=== PATIENT | male | born 1990 | race Caucasian/White ===

== ENCOUNTER 2018-01-21 00:10 | Emergency (ER) | payer BC ==
--- NOTE | 2018-01-21 01:19 | ER Document Report ---
ED General - General Chief Complaint: Chest Pain Stated Complaint: CHEST PAIN Time Seen by Provider: 01/21/18 01:18 Notes: Patient is a 27-year-old male who presents with complaint of chest pain is come up for sleep. He says that the lower chest region and radiates to his back. He said he has had a few episodes over the course of the year. He said these previous episodes came on quickly at night and then went away on their own. This episode lingered on. He said currently the pain is almost gone now. He denies any difficulty breathing. No shortness of breath. Pain is not pleuritic. He says he does have some acid reflux and he suspects that that is what is causing his pain however he does have a family history of coronary disease at a young age. Therefore is come to the ER. No recent leg pain or leg swelling. No recent long road trips. No recent surgeries. No history of DVT or PE. He does not smoke. Does not take any medications. He is otherwise healthy. TRAVEL OUTSIDE OF THE [place] IN LAST 30 DAYS: No - Related Data Allergies/Adverse Reactions: No Known Allergies Allergy (Unverified 01/21/18 00:15) Past Medical History - Social History Smoking Status: Unknown if Ever Smoked Frequency of alcohol use: None Drug Abuse: None Family History: Reviewed & Not Pertinent Patient has suicidal ideation: No Patient has homicidal ideation: No Renal/ Medical History: Denies: Hx Peritoneal Dialysis Review of Systems - Review of Systems Notes: My Normal Review Basic REVIEW OF SYSTEMS: CONSTITUTIONAL : Denies fever, chills, or sweats. Denies recent illness. EENT: Denies eye, ear, throat, or mouth pain or symptoms. Denies nasal or sinus congestion. CARDIOVASCULAR: Chest pain RESPIRATORY: Denies cough, cold, or chest congestion. Denies shortness of breath, difficulty breathing, or wheezing. GASTROINTESTINAL: Denies abdominal pain. Denies nausea, vomiting, or diarrhea. MUSCULOSKELETAL: Pain radiating to back from chest. SKIN: Denies rash or skin lesions. NEUROLOGICAL: Denies altered mental status or loss of consciousness. Denies headache. Denies weakness or paralysis or loss of use of either side. Denies problems with gait or speech. Denies sensory or motor loss. ALL OTHER SYSTEMS REVIEWED AND NEGATIVE. Physical Exam - Vital signs Vitals: Temp Pulse Resp BP Pulse Ox 97.9 F 78 16 156/95 H 100 01/21/18 00:34 01/21/18 00:34 01/21/18 00:34 01/21/18 00:34 01/21/18 00:34 - Notes Notes: General Appearance: Well nourished, alert, cooperative, no acute distress, no obvious discomfort. Well-appearing. Vitals: reviewed, See vital signs table. Head: no swelling or tenderness to the head Eyes: PERRL, EOMI, Conjuctiva clear Mouth: No decreasd moisture Throat: No tonsillar inflammation, No airway obstruction, No lymphadenopathy Lungs: No wheezing, No rales, No rhonci, No accessory muscle use, good air exchange bilaterally. Heart: Normal rate, Regular rythm, No murmur, no rub Abdomen: Normal BS, soft, No rigidity, No abdominal tenderness, No guarding, no rebound, no abdominal masses, no organomegaly Extremities: strength 5/5 in all extremities, good pulses in all extremities, no swelling or tenderness in the extremities, no edema. Skin: warm, dry, appropriate color, no rash Neuro: speech clear, oriented x 3, normal affect, responds appropriately to questions. Course - Re-evaluation Re-evalutation: 01/21/18 02:23 Patient looks very well and is chest pain-free at this time. His pain is always in the lower chest and radiates to the back. Said it a few times over the course of last year. This is always happens at night and wakes him up. Sounds very similar to that of acid reflux. Patient himself admits that he felt it is probably related to acid reflux or gastritis. I will have him take either Pepcid or Zantac every day. I did obtain cardiac enzymes and EKG only because he has such a strong family history of heart disease at a young age. He otherwise has no other risk factors. He does not smoke, he was hypertensive when he first came in but has no other history of hypertension. No history of high cholesterol. Is otherwise healthy. His heart score is 2 due to family history and story. I informed him that we will have him follow-up with the sandwich and drink cart operator for reevaluation. I informed him he should still have a low threshold to return to ER immediately if he has recurrent chest pain, difficulty breathing, or feels unwell. Patient agrees with plan will be discharged home. His blood pressure was elevated when he first came in. Is now 139/87 without any intervention. Informed the patient just to keep a log of his blood pressures over the next 1-2 weeks. Informed to talk to primary care doctor about his blood pressures if they are recurrently elevated on his log. I suspect the most likely his blood pressure is elevated because he was anxious and having pain when he first arrived to the ER. Dictation of this chart was performed using voice recognition software; therefore, there may be some unintended grammatical errors. 01/21/18 02:28 - Vital Signs Vital signs: Temp Pulse Resp BP Pulse Ox 97.9 F 78 15 145/97 H 98 01/21/18 00:34 01/21/18 00:34 01/21/18 01:35 01/21/18 01:35 01/21/18 01:35 - Laboratory Result Diagrams: 01/21/18 01:28 01/21/18 01:28 Laboratory results interpreted by me: 01/21/18 01/21/18 01:28 01:28 Plt Count 141 L Glucose 113 H - EKG Interpretation by Me Additional EKG results interpreted by me: 01/21/18 01:18 EKG is reviewed and interpreted by me. EKG shows normal sinus rhythm with a rate of [address] segment elevation or depression. No ischemic T-wave inversions. [place] interval, QRS duration, QTc intervals are within normal range. No old EKG available for comparison. Discharge - Discharge Clinical Impression: Chest pain Qualifiers: Chest pain type: unspecified Qualified Code(s): R07.9 - Chest pain, unspecified Condition: Good Disposition: HOME, SELF-CARE Additional Instructions: Your EKG and blood work looking at your heart came back normal tonight. I suspect most likely the pain you've been having is related to gastritis or acid reflux being that the pain always happens at night. Please take Pepcid or Zantac once a day every day. You do have a strong family history of heart disease. Because of this we still want she will follow up with sandwich and drink cart operator for further evaluation. Please call Dr. Walker's office to make a close follow- up appointment. Please return to ER immediately if you have recurrent chest pain, difficulty breathing, or feel unwell in any way. Referrals: KAREN WALKER MD [ACTIVE STAFF] - Follow up in 3-5 days (call office in the am to make a close follow up appointment.)
[2018-01-21 01:54] LABS: ALANINE AMINOTRANSFERASE 51 U/L (21-72); ALBUMIN 4.4 g/dL (3.5-5.0); ALKALINE PHOSPHATASE 65 U/L (38-126); ANION GAP 16 (5-19); ASPARTATE AMINO TRANSFERASE 59 U/L (17-59); BILIRUBIN,DIRECT 0.3 mg/dL (0.0-0.4); BILIRUBIN,TOTAL 0.9 mg/dL (0.2-1.3); BLOOD UREA NITROGEN 14 mg/dL (7-20); CALCIUM 9.5 mg/dL (8.4-10.2); CARBON DIOXIDE 25 mmol/L (22-30); CHLORIDE 104 mmol/L (98-107); GLUCOSE 113 mg/dL (75-110); POTASSIUM 3.9 mmol/L (3.6-5.0); SODIUM 144.5 mmol/L (137-145); TOTAL PROTEIN 7.1 g/dL (6.3-8.2)
[2018-01-21 01:55] LABS: ABSOLUTE EOSINOPHILS # (AUTO) 0.1 10^3/uL (0.0-0.6); ABSOLUTE LYMPHOCYTES (AUTO) 1.7 10^3/uL (0.5-4.7); ABSOLUTE MONOCYTES (AUTO) 0.5 10^3/uL (0.1-1.4); ABSOLUTE NEUT (AUTO) 4.6 10^3/uL (1.7-8.2); BASOPHILS % (AUTO) 0.3 % (0-2); EOSINOPHILS % (AUTO) 2.1 % (0-6); HEMATOCRIT 44.6 % (37.9-51.0); HEMOGLOBIN 15.3 g/dL (13.5-17.0); LYMPHOCYTES % (AUTO) 24.5 % (13-45); MEAN CORPUSCULAR HEMOGLOBIN 29.9 pg (27.0-33.4); MEAN CORPUSCULAR HGB CONC 34.2 g/dL (32.0-36.0); MEAN CORPUSCULAR VOLUME 88 fl (80-97); MONOCYTES % (AUTO) 7.8 % (3-13); PLATELET COUNT 141 10^3/uL (150-450); RED BLOOD COUNT 5.09 10^6/uL (4.35-5.55); RED CELL DISTRIBUTION WIDTH 13.5 % (11.5-14.0); SEGMENTED NEUTROPHILS % (AUTO) 65.3 % (42-78); TOTAL CELLS COUNTED % (AUTO) 100 %
[2018-01-21 02:30] VITALS: BP 139/87
--- NOTE | 2018-01-21 02:30 | RADIOLOGY REPORT (SQ) ---
EXAM DESCRIPTION: CR Chest two view CLINICAL HISTORY: 27 years Male, chest pain COMPARISON: None. NUMBER OF VIEWS/TECHNIQUE: 2, PA and Lateral LIMITATIONS: None. FINDINGS: Normal lung volume. Clear parenchyma. Normal cardiac silhouette. Intact bony thorax. IMPRESSION: No acute cardiopulmonary findings.
--- NOTE | 2018-01-21 07:34 | EKG REPORT ---
SEVERITY:- NORMAL ECG - SINUS RHYTHM : Confirmed by: Felipe Borja MD 21-Jan-2018 07:34:14
== END 2018-01-21 02:36 | disposition home or self-care (01) ==
LOC: ER 00:10
DX: R07.9 Chest pain, unspecified (principal)
CPT/HCPCS: 36415; 71046; 80053; 84484; 85025; 93005; 93010; 99285

== ENCOUNTER 2019-06-07 12:34 | Inpatient (IN) | payer BC, OTHER ==
--- NOTE | 2019-06-07 13:07 | ER Document Report ---
ED Medical Screen (RME) - General Chief Complaint: Abdominal Pain Stated Complaint: ABDOMINAL PAIN Time Seen by Provider: 06/07/19 13:03 Mode of Arrival: Ambulatory Information source: Patient Notes: Patient presents to the emergency department with complaints of right upper quad epigastric pain since Thursday. Reports he has been vomiting. He went to [facility] and they sent him here. He denies fever diarrhea. Past medical history I have greeted and performed a rapid initial assessment of this patient. A comprehensive ED assessment and evaluation of the patient, analysis of test results and completion of the medical decision making process will be conducted by additional ED providers. Dictation of this chart was performed using voice recognition software; therefore, there may be some unintended grammatical errors. TRAVEL OUTSIDE OF THE [place] IN LAST 30 DAYS: No - Related Data Allergies/Adverse Reactions: No Known Allergies Allergy (Verified 06/07/19 13:01) Past Medical History - Social History Chew tobacco use (# tins/day): No Frequency of alcohol use: None Renal/ Medical History: Denies: Hx Peritoneal Dialysis GI Medical History: Reports: Hx Gastroesophageal Reflux Disease Physical Exam - Vital signs Vitals: Temp Pulse Resp BP Pulse Ox 98.1 F 82 16 140/86 H 99 06/07/19 12:52 06/07/19 12:52 06/07/19 12:52 06/07/19 12:52 06/07/19 12:52 Course - Vital Signs Vital signs: Temp Pulse Resp BP Pulse Ox 98.1 F 82 16 140/86 H 99 06/07/19 12:52 06/07/19 12:52 06/07/19 12:52 06/07/19 12:52 06/07/19 12:52
[2019-06-07 13:41] LABS: ABSOLUTE EOSINOPHILS # (AUTO) 0.1 10^3/uL (0.0-0.6); ABSOLUTE LYMPHOCYTES (AUTO) 1.1 10^3/uL (0.5-4.7); ABSOLUTE MONOCYTES (AUTO) 0.7 10^3/uL (0.1-1.4); ABSOLUTE NEUT (AUTO) 5.6 10^3/uL (1.7-8.2); BASOPHILS % (AUTO) 0.5 % (0-2); EOSINOPHILS % (AUTO) 1.6 % (0-6); HEMATOCRIT 47.4 % (37.9-51.0); HEMOGLOBIN 16.1 g/dL (13.5-17.0); LYMPHOCYTES % (AUTO) 14.4 % (13-45); MEAN CORPUSCULAR HEMOGLOBIN 29.6 pg (27.0-33.4); MEAN CORPUSCULAR VOLUME 87 fl (80-97); MONOCYTES % (AUTO) 9.2 % (3-13); PLATELET COUNT 156 10^3/uL (150-450); RED BLOOD COUNT 5.44 10^6/uL (4.35-5.55); RED CELL DISTRIBUTION WIDTH 13.5 % (11.5-14.0); SEGMENTED NEUTROPHILS % (AUTO) 74.3 % (42-78); TOTAL CELLS COUNTED % (AUTO) 100 %; WHITE BLOOD COUNT 7.5 10^3/uL (4.0-10.5)
[2019-06-07 13:46] LABS: APPEARANCE,URINE CLEAR; BILIRUBIN,URINE MODERATE (NEGATIVE); COLOR,URINE AMBER; GLUCOSE, URINE NEGATIVE (NEGATIVE); KETONES,URINE 20 mg/dL (NEGATIVE); LEUKOCYTE ESTERASE,URINE NEGATIVE (NEGATIVE); NITRITE,URINE NEGATIVE (NEGATIVE); PROTEIN,URINE NEGATIVE (NEGATIVE); URINE SPECIFIC GRAVITY 1.016
[2019-06-07 14:15] LABS: ALBUMIN 4.9 g/dL (3.5-5.0); ALKALINE PHOSPHATASE 142 U/L (38-126); ANION GAP 13 (5-19); ASPARTATE AMINO TRANSFERASE 123 U/L (17-59); BILIRUBIN,DIRECT 5.2 mg/dL (0.0-0.4); BILIRUBIN,TOTAL 8.7 mg/dL (0.2-1.3); BLOOD UREA NITROGEN 9 mg/dL (7-20); CARBON DIOXIDE 28 mmol/L (22-30); CHLORIDE 99 mmol/L (98-107); GLUCOSE 92 mg/dL (75-110); POTASSIUM 3.7 mmol/L (3.6-5.0); TOTAL PROTEIN 8.3 g/dL (6.3-8.2)
[2019-06-07] MEDS ORDERED: NORMAL SALINE 1000 ML 1,000 ML IV ONE (17:05)
--- NOTE | 2019-06-07 17:07 | ER Document Report ---
ED GI/ - General Chief Complaint: Abdominal Pain Stated Complaint: ABDOMINAL PAIN Time Seen by Provider: 06/07/19 13:03 Mode of Arrival: Ambulatory Information source: Patient Notes: Patient presents with a 5-day history of right upper quadrant abdominal pain. Patient states that he had a similar episode of pain 2 weeks ago that lasted for several days and then got better. Patient states that he noticed that his urine turned orange and his eyes are yellow since yesterday. Patient does report vomiting x1 episode today. Patient complains of decreased appetite. TRAVEL OUTSIDE OF THE [place] IN LAST 30 DAYS: No - HPI Patient complains to provider of: Abdominal pain. No: Vomiting Onset: Other - 5 days Timing/Duration: Persistent Quality of pain: Achy Pain Level: 3 Location: RUQ Associated symptoms: Loss of appetite, Nausea, Vomiting. denies: Chest pain, Dysuria, Fever, Urinary hesitancy, Urinary retention, Urinary urgency Exacerbated by: Denies Relieved by: Denies Similar symptoms previously: No Recently seen / treated by doctor: No - Related Data Allergies/Adverse Reactions: No Known Allergies Allergy (Verified 06/07/19 13:01) Past Medical History - General Information source: Patient - Social History Smoking Status: Never Smoker Chew tobacco use (# tins/day): No Frequency of alcohol use: None Drug Abuse: None Occupation: Retail Lives with: Family Family History: Reviewed & Not Pertinent Patient has suicidal ideation: No Patient has homicidal ideation: No Renal/ Medical History: Denies: Hx Peritoneal Dialysis GI Medical History: Reports: Hx Gastroesophageal Reflux Disease Past Surgical History: Reports: Hx Oral Surgery Review of Systems - Review of Systems Constitutional: No symptoms reported. denies: Fever EENT: Other - Eyes have turned yellow Cardiovascular: No symptoms reported. denies: Chest pain Respiratory: No symptoms reported. denies: Cough, Short of breath Gastrointestinal: Abdominal pain, Nausea, Vomiting. denies: Diarrhea Genitourinary: Other - Urine is orange in color Male Genitourinary: No symptoms reported Musculoskeletal: No symptoms reported. denies: Back pain Skin: No symptoms reported Hematologic/Lymphatic: No symptoms reported Neurological/Psychological: No symptoms reported Physical Exam - Vital signs Vitals: Temp Pulse Resp BP Pulse Ox 98.1 F 82 16 140/86 H 99 06/07/19 12:52 06/07/19 12:52 06/07/19 12:52 06/07/19 12:52 06/07/19 12:52 - General General appearance: Appears well, Alert In distress: None - HEENT Head: Normocephalic Eyes: Normal Conjunctiva: Icteric Mouth/Lips: Normal Pharynx: Normal Neck: Normal, Supple. No: Lymphadenopathy - Respiratory Respiratory status: No respiratory distress Chest status: Nontender Breath sounds: Normal Chest palpation: Normal - Cardiovascular Rhythm: Regular Heart sounds: S1 appreciated, S2 appreciated Murmur: No - Abdominal Inspection: Normal Distension: No distension Bowel sounds: Normal Tenderness: Tender - RUQ. No: Guarding Organomegaly: No organomegaly - Back Back: Normal, Nontender. No: CVA tenderness - Extremities General upper extremity: Normal inspection, Normal ROM General lower extremity: Normal inspection, Normal ROM - Neurological Neuro grossly intact: Yes Cognition: Normal Bryant Coma Scale Eye Opening: Spontaneous [place] Coma Scale Verbal: Oriented [place] Coma Scale Motor: Obeys Commands [place] Coma Scale Total: 15 - Psychological Associated symptoms: Normal affect, Normal mood - Skin Skin Temperature: Warm Skin Moisture: Dry Skin Color: Jaundiced - mild Course - Re-evaluation Re-evalutation: 06/07/19 17:[address] Salmeron who agrees to evaluate patient 06/07/19 18:[address] Salmeron who recommends adding on CT scan with IV contrast at this time. 06/07/19 19:35 Dr. Salmeron states that he called a cook fishing vessel who is agreeable to pe rforming ERCP tomorrow. Dr. Salmeron states that he will admit patient here tonight and order his antibiotics at this time. - Vital Signs Vital signs: Temp Pulse Resp BP Pulse Ox 98.2 F 82 20 135/71 H 98 06/07/19 23:47 06/07/19 23:47 06/07/19 23:47 06/07/19 23:47 06/07/19 23:47 - Laboratory Result Diagrams: 06/07/19 13:19 06/07/19 13:19 Laboratory results interpreted by me: 06/07/19 06/07/19 13:19 13:19 Total Bilirubin 8.7 H Direct Bilirubin 5.2 H AST 123 H Alkaline Phosphatase 142 H Total Protein 8.3 H Urine Ketones 20 H Urine Bilirubin MODERATE H Urine Urobilinogen 4.0 H 06/07/19 19:36 Labs- Entire Visit 06/07/19 06/07/19 06/07/19 13:19 13:19 13:19 WBC 7.5 RBC 5.44 Hgb 16.1 Hct 47.4 MCV 87 MCH 29.6 MCHC 34.0 RDW 13.5 Plt Count 156 Lymph % (Auto) 14.4 [place] % (Auto) 9.2 Eos % (Auto) 1.6 Baso % (Auto) 0.5 Absolute Neuts (auto) 5.6 Absolute Lymphs (auto) 1.1 Absolute Monos (auto) 0.7 Absolute Eos (auto) 0.1 Absolute Basos (auto) 0.0 Seg Neutrophils % 74.3 Sodium 140.3 Potassium 3.7 Chloride 99 Carbon Dioxide 28 Anion Gap 13 BUN 9 Creatinine 1.02 Est GFR ( Amer) > 60 Est GFR (MDRD) Non-Af > 60 Glucose 92 Calcium 10.0 Total Bilirubin 8.7 H Direct Bilirubin 5.2 H Neonat Total Bilirubin Not Reportable Neonat Direct Bilirubin Not Reportable Neonat Indirect Bili Not Reportable AST 123 H ALT 238 Alkaline Phosphatase 142 H Total Protein 8.3 H Albumin 4.9 Lipase 77.9 Urine Color SAMUEL Urine Appearance CLEAR Urine pH 6.0 Ur Specific [place] 1.016 Urine Protein NEGATIVE Urine Glucose (UA) NEGATIVE Urine Ketones 20 H Urine Blood NEGATIVE Urine Nitrite NEGATIVE Urine Bilirubin MODERATE H Urine Urobilinogen 4.0 H Ur Leukocyte Esterase NEGATIVE Urine WBC (Auto) 5 Urine RBC (Auto) 4 Urine Mucus (Auto) FEW Urine Ascorbic Acid NEGATIVE - Diagnostic Test Radiology reviewed: Reports reviewed Discharge - Discharge Clinical Impression: Biliary obstruction, Jaundice Abdominal pain Qualifiers: Abdominal location: right upper quadrant Qualified Code(s): R10.11 - Right upper quadrant pain Condition: Fair Disposition: ADMITTED INPATIENT Admitting Provider: Surgicalist Unit Admitted: Medical Floor
--- NOTE | 2019-06-07 17:38 | RADIOLOGY REPORT (SQ) ---
EXAM DESCRIPTION: U/S ABDOMEN COMPLETE W/O DOP COMPLETED DATE/TIME: 06/07/2019 5:29 pm REASON FOR STUDY: ruq epigastric, flank pain, add bladder COMPARISON: None. TECHNIQUE: Dynamic and static grayscale images acquired of the abdomen and recorded on PACS. Additio nal selected color Doppler and spectral images recorded. Note: Study does not meet criteria for complete doppler/duplex scan LIMITATIONS: None. FINDINGS: PANCREAS: No masses. Visualized pancreatic duct normal caliber. LIVER: Heterogeneous appearance with possible infiltration. No large masses. LIVER VASCULATURE: Normal directional flow of the main portal vein and hepatic veins. GALLBLADDER: Stones. No pericholecystic fluid. ULTRASOUND-DETECTED VIRK'S SIGN: Negative. INTRAHEPATIC DUCTS AND COMMON DUCT: CBD and intrahepatic ducts normal caliber. No filling defects. INFERIOR VENA CAVA: Normal flow. AORTA: No aneurysm. RIGHT KIDNEY: Normal size. Normal echogenicity. No solid or suspicious masses. No hydronephros is. No calcifications. LEFT KIDNEY: Normal size. Normal echogenicity. No solid or suspicious masses. No hydronephrosi s. No calcifications. SPLEEN: Normal size. No solid masses. PERITONEAL AND PLEURAL SPACES: No ascites or effusions. OTHER: No other significant finding. IMPRESSION: Cholelithiasis. Heterogeneous appearance of the liver which is worrisome for an infiltrative process. COMMENT: Recommend CT scan of the liver with contrast. TECHNICAL DOCUMENTATION: JOB ID: [id number] [employer]- All Rights Reserved Reading location - IP/workstation name: [email or web address]
--- NOTE | 2019-06-07 19:07 | RADIOLOGY REPORT (SQ) ---
EXAM DESCRIPTION: CT ABD/PELVIS WITH IV ONLY COMPLETED DATE/TIME: 06/07/2019 6:50 pm REASON FOR STUDY: RUQ, jaundiced COMPARISON: None. TECHNIQUE: CT scan of the abdomen and pelvis performed using helical scanning technique with dynamic intravenous contrast injection. No oral contrast. Images reviewed with lung, soft tissue, and bone windows. Reconstructed coronal and sagittal MPR images reviewed. Delayed images for evaluation of the urinary system also acquired. All images stored on PACS. All CT scanners at this facility use dose modulation, iterative reconstruction, and/or weight based d osing when appropriate to reduce radiation dose to as low as reasonably achievable (ALARA). [facility]: Dose Right [facility]: CareDose [facility]: Dose Right [facility]: Teradose 4D [facility]: Zendrive CONTRAST TYPE AND DOSE: contrast/concentration: Isovue 350.00 mg/ml; Total Contrast Delivered: 95.0 ml; Total Saline Delivered: 71.0 ml RENAL FUNCTION: BUN 9 creatinine 1.0. RADIATION DOSE: CT Rad equipment meets quality standard of care and radiation dose reduction techniq ues were employed. CTDIvol: 9.2 - 12.8 mGy. DLP: 1254 mGy-cm.. LIMITATIONS: None. FINDINGS: LOWER CHEST: No significant findings. No nodules or infiltrates. LIVER: Normal size. No masses. Dilated intrahepatic ducts. SPLEEN: Normal size. No focal lesions. PANCREAS: No masses. No significant calcifications. No adjacent inflammation or peripancreatic fluid collections. Pancreatic duct not dilated. GALLBLADDER: Gallstones. Dilated common bile duct, measuring 1.2 cm. Calcification in the distal co mmon bile duct, overall length on coronal imaging just over 2 cm. ADRENAL GLANDS: No significant masses or asymmetry. RIGHT KIDNEY AND URETER: No solid masses. No significant calcifications. No hydronephrosis or hyd roureter. LEFT KIDNEY AND URETER: No solid masses. No significant calcifications. No hydronephrosis or hydr oureter. AORTA AND VESSELS: No aneurysm. No dissection. Renal arteries, SMA, celiac without stenosis. RETROPERITONEUM: No retroperitoneal adenopathy, hemorrhage or masses. BOWEL AND PERITONEAL CAVITY: No masses or inflammatory changes. No free fluid or peritoneal masses. APPENDIX: Normal. PELVIS: No mass. No free fluid. Normal bladder. ABDOMINAL WALL: No masses. No hernias. BONES: No significant or acute findings. OTHER: No other significant finding. IMPRESSION: 1. GALLSTONES. LARGE CALCIFICATION IN THE DISTAL COMMON BILE DUCT, MEASURING OVER 2 CM IN LENGTH, RE SULTING IN BILIARY OBSTRUCTION. THIS MAY REPRESENT A SINGLE LARGE STONE OR NUMEROUS STONES CLOSELY P ACKED TOGETHER. 2. NO OTHER SIGNIFICANT OR ACUTE FINDING IN THE ABDOMEN OR PELVIS ON CT SCAN WITH IV CONTRAST. TECHNICAL DOCUMENTATION: JOB ID: [id number] Quality ID # [id number]: Final reports with documentation of one or more dose reduction techniques (e.g., Au tomated exposure control, adjustment of the mA and/or kV according to patient size, use of iterative reconstruction technique) 2010 [employer]- All Rights Reserved Reading location - IP/workstation name: [email or web address]
--- NOTE | 2019-06-07 19:43 | PDOC H&P ---
History of Present Illness Admission Date/PCP: 06/07/19 Patient complains of: RUQ pains History of Present Illness: PIETER DONALD is a 29 year old malewho started c/o RUQ pains 5 days ago. This was associated with nausea and vomiting. He also noticed that his urine was highly colored. The pains were persistent and went to ED today. He had an ultrasound of the gallbladder which showed gallstones with a normal common bile duct but with question of inflammatory lesion in the liver. His LFTs are elevated as well as bilirubin being 8. A CT scan of the abdomen was then ordered and showed dilated intrahepatic bile ducts with the common bile duct stone about 2 cm in diameter. He was able to get in touch with Dr. Reid the GI physician. He said the patient can be admitted to the surgical service and started on IV antibiotics and he will do an ERCP tomorrow. The patient will eventually need cholecystectomy after the ERCP. Denies any chills nor fever diarrhea or constipation. Past Medical History GI Medical History: Reports: Gastroesophageal Reflux Disease Social History Smoking Status: Never Smoker Family History Family History: Reviewed & Not Pertinent Parental Family History Reviewed: Yes - Father of IA at age 42 Children Family History Reviewed: No Sibling(s) Family History Reviewed.: No Medication/Allergy Allergies/Adverse Reactions: No Known Allergies Allergy (Verified 06/07/19 13:01) Review of Systems Constitutional: PRESENT: as per HPI Gastrointestinal: PRESENT: abdominal pain - RUQ radiating to the back and LUQ, heartburn, nausea, vomiting Physical Exam Vital Signs: Temp Pulse Resp BP Pulse Ox 98.1 F 82 16 140/86 H 99 06/07/19 12:52 06/07/19 12:52 06/07/19 12:52 06/07/19 12:52 06/07/19 12:52 Intake & Output 06/06/19 06/07/19 06/08/19 06:59 06:59 06:59 Weight 82.8 kg General appearance: PRESENT: mild distress Eye exam: PRESENT: scleral icterus Neck exam: PRESENT: full ROM Cardiovascular exam: PRESENT: RRR Pulses: PRESENT: normal radial pulses Vascular exam: PRESENT: normal capillary refill GI/Abdominal exam: PRESENT: soft, tenderness - RUQ Extremities exam: PRESENT: full ROM Musculoskeletal exam: PRESENT: ambulatory Neurological exam: PRESENT: alert, oriented to person, oriented to place, oriented to time, oriented to situation Psychiatric exam: PRESENT: appropriate affect Skin exam: PRESENT: jaundice, warm Results Laboratory Results: 06/07/19 13:19 06/07/19 13:19 06/07/19 06/07/19 06/07/19 13:19 13:19 13:19 WBC 7.5 RBC 5.44 Hgb 16.1 Hct 47.4 MCV 87 MCH 29.6 MCHC 34.0 RDW 13.5 Plt Count 156 Seg Neutrophils % 74.3 Sodium 140.3 Potassium 3.7 Chloride 99 Carbon Dioxide 28 Anion Gap 13 BUN 9 Creatinine 1.02 Est GFR ( Amer) > 60 Glucose 92 Calcium 10.0 Total Bilirubin 8.7 H AST 123 H Alkaline Phosphatase 142 H Total Protein 8.3 H Albumin 4.9 Lipase 77.9 Urine Color SAMUEL Urine Appearance CLEAR Urine pH 6.0 Ur Specific [place] 1.016 Urine Protein NEGATIVE Urine Glucose (UA) NEGATIVE Urine Ketones 20 H Urine Blood NEGATIVE Urine Nitrite NEGATIVE Ur Leukocyte Esterase NEGATIVE Urine WBC (Auto) 5 Urine RBC (Auto) 4 Impressions: Abdomen Ultrasound 06/07/19 13:05 IMPRESSION: Cholelithiasis. Heterogeneous appearance of the liver which is worrisome for an infiltrative process. Abdomen/Pelvis CT 06/07/19 18:06 IMPRESSION: 1. GALLSTONES. LARGE CALCIFICATION IN THE DISTAL COMMON BILE DUCT, MEASURING OVER 2 CM IN LENGTH, RESULTING IN BILIARY OBSTRUCTION. THIS MAY REPRESENT A SINGLE LARGE STONE OR NUMEROUS STONES CLOSELY PACKED TOGETHER. 2. NO OTHER SIGNIFICANT OR ACUTE FINDING IN THE ABDOMEN OR PELVIS ON CT SCAN WITH IV CONTRAST. Assessment & Plan - Diagnosis (1) Cholelithiasis Is this a current diagnosis for this admission?: Yes (2) Abdominal pain Qualifiers: Abdominal location: right upper quadrant Qualified Code(s): R10.11 - Right upper quadrant pain Is this a current diagnosis for this admission?: Yes (3) Biliary obstruction Is this a current diagnosis for this admission?: Yes (4) Jaundice Is this a current diagnosis for this admission?: Yes - Time Time Spent: 30 to 50 Minutes - Inpatient Certification Medical Necessity: Need For IV Fluids, Need for IV Antibiotics, Need for Surgery - Plan Summary Plan Summary: Start IV antibiotics For ERCP tomorrow by Dr. Reid We will keep n.p.o. from midnight, Monitor labs in the morning.
[2019-06-07] MEDS ORDERED: DEXTROSE 40% GEL 15 GM TUBE PO PRN ×2 (20:30)
[2019-06-07] MEDS ORDERED: DEXTROSE 50%-WATER 25 GM/50 ML DISP.SYRIN IV PRN ×2 (20:30)
[2019-06-07] MEDS ORDERED: GLUCAGON,HUMAN RECOMB 1 MG INJ SUBCUT PRN (20:30)
[2019-06-07] MEDS ORDERED: PIPERACILLIN/TAZOBACTAM 3.375 GM VIAL IV SCH (22:00)
[2019-06-07] MEDS ORDERED: PIPERACILLIN SODIUM/TAZOBACTAM 3.375 GM in NORMAL SALINE 100 ML IV SCH (22:00)
[2019-06-07] MEDS: KETOROLAC TROMETHAMINE INJ/PF 30 MG/1 ML SDV IV PRN (22:55)
[2019-06-07] MEDS: ONDANSETRON HCL INJ/PF 4 MG/2 ML SDV IV PRN (22:55)
[2019-06-08] MEDS ORDERED: PIPERACILLIN/TAZOBACTAM 3.375 GM VIAL IV ONE (00:07)
[2019-06-08] MEDS: DEXTROSE 5%-LACTATED RINGERS 1,000 ML IV PRN ×3 (02:56→16:27)
[2019-06-08] MEDS: PIPERACILLIN SODIUM/TAZOBACTAM 3.375 GM in NORMAL SALINE 100 ML IV SCH ×4 (02:57→21:31)
[2019-06-08 06:53] LABS: ABSOLUTE EOSINOPHILS # (AUTO) 0.2 10^3/uL (0.0-0.6); ABSOLUTE LYMPHOCYTES (AUTO) 1.2 10^3/uL (0.5-4.7); ABSOLUTE MONOCYTES (AUTO) 0.5 10^3/uL (0.1-1.4); ABSOLUTE NEUT (AUTO) 2.6 10^3/uL (1.7-8.2); BASOPHILS % (AUTO) 0.7 % (0-2); EOSINOPHILS % (AUTO) 4.5 % (0-6); HEMATOCRIT 40.9 % (37.9-51.0); HEMOGLOBIN 14.1 g/dL (13.5-17.0); LYMPHOCYTES % (AUTO) 26.7 % (13-45); MEAN CORPUSCULAR HGB CONC 34.5 g/dL (32.0-36.0); MEAN CORPUSCULAR VOLUME 87 fl (80-97); MONOCYTES % (AUTO) 11.1 % (3-13); PLATELET COUNT 111 10^3/uL (150-450); RED BLOOD COUNT 4.71 10^6/uL (4.35-5.55); RED CELL DISTRIBUTION WIDTH 13.8 % (11.5-14.0); TOTAL CELLS COUNTED % (AUTO) 100 %; WHITE BLOOD COUNT 4.6 10^3/uL (4.0-10.5)
[2019-06-08 07:10] LABS: ALKALINE PHOSPHATASE 105 U/L (38-126); ANION GAP 11 (5-19); ASPARTATE AMINO TRANSFERASE 92 U/L (17-59); BILIRUBIN,DIRECT 4.6 mg/dL (0.0-0.4); BILIRUBIN,TOTAL 7.5 mg/dL (0.2-1.3); BLOOD UREA NITROGEN 12 mg/dL (7-20); CALCIUM 8.9 mg/dL (8.4-10.2); CARBON DIOXIDE 28 mmol/L (22-30); CHLORIDE 101 mmol/L (98-107); GLUCOSE 112 mg/dL (75-110); POTASSIUM 3.7 mmol/L (3.6-5.0); TOTAL PROTEIN 6.6 g/dL (6.3-8.2)
[2019-06-08] MEDS ORDERED: DEXAMETHASONE SOD PHOSPHATE INJ 4 MG/1 ML VIAL ONE (09:20)
[2019-06-08] MEDS ORDERED: KETOROLAC TROMETHAMINE 60 MG/2 ML SDV ONE (09:20)
[2019-06-08] MEDS ORDERED: ROCURONIUM BROMIDE INJ 50 MG/5 ML VIAL IV ONE (09:20)
[2019-06-08] MEDS ORDERED: LIDOCAINE 2% INJ-PF (20 MG/ML) 2 ML AMPUL ONE (09:20)
[2019-06-08] MEDS ORDERED: GLYCOPYRROLATE 1 MG/5 ML VIAL ONE (09:20)
[2019-06-08] MEDS ORDERED: ONDANSETRON HCL INJ/PF 4 MG/2 ML SDV ONE (09:20)
[2019-06-08] MEDS ORDERED: NEOSTIGMINE METHYLSULFATE 10 MG/10 ML VIAL ONE (09:20)
[2019-06-08] MEDS ORDERED: METOCLOPRAMIDE HCL INJ/PF 10 MG/2 ML SDV ONE (09:20)
[2019-06-08] MEDS: KETOROLAC TROMETHAMINE INJ/PF 30 MG/1 ML SDV IV PRN (10:57)
[2019-06-08] MEDS: ONDANSETRON HCL INJ/PF 4 MG/2 ML SDV IV PRN ×2 (10:58→21:32)
--- NOTE | 2019-06-08 14:20 | PDOC PROGRESS REPORT ---
Subjective Progress Note for:: 06/08/19 Subjective:: This is a 29-year-old male with right upper quadrant pain, nausea, vomiting, and jaundice. He was found to have choledocholithiasis. He was admitted for definitive treatment. The patient today is comfortable. He denies abdominal pain, chest pain, shortness of breath, fevers, chills, nausea, vomiting, headache, dizziness, orthostasis, blurry vision. Reason For Visit: CHOLELITHIASIS,COMMON BILE DUCT STONES Physical Exam Vital Signs: Temp Pulse Resp BP Pulse Ox 98.5 F 67 14 126/71 H 99 06/08/19 11:59 06/08/19 11:59 06/08/19 11:59 06/08/19 11:59 06/08/19 11:59 Intake & Output 06/07/19 06/08/19 06/09/19 06:59 06:59 06:59 Intake Total 1100 1100 Output Total 0 Balance 1100 1100 Weight 83.9 kg General appearance: PRESENT: no acute distress, cooperative Head exam: PRESENT: atraumatic, normocephalic Eye exam: PRESENT: EOMI, PERRLA, scleral icterus Mouth exam: PRESENT: moist, neck supple Teeth exam: ABSENT: poor dentation Neck exam: ABSENT: tenderness, thyromegaly, tracheal deviation Respiratory exam: PRESENT: clear to auscultation russell, unlabored. ABSENT: chest wall tenderness, tachypnea, wheezes Cardiovascular exam: PRESENT: RRR Pulses: PRESENT: normal radial pulses Vascular exam: PRESENT: normal capillary refill. ABSENT: pallor GI/Abdominal exam: PRESENT: soft, tenderness - mild RUQ Rectal exam: PRESENT: deferred Extremities exam: ABSENT: clubbing Musculoskeletal exam: ABSENT: deformity Neurological exam: PRESENT: alert, awake, oriented to person, oriented to place, oriented to time, oriented to situation, CN II-XII grossly intact Psychiatric exam: ABSENT: agitated, anxious, depressed Skin exam: PRESENT: jaundice. ABSENT: cyanosis, erythema Results Laboratory Results: 06/08/19 06:25 06/08/19 06:25 06/07/19 06/08/19 06/08/19 13:19 06:25 06:25 WBC 4.6 RBC 4.71 Hgb 14.1 Hct 40.9 MCV 87 MCH 30.0 MCHC 34.5 RDW 13.8 Plt Count 111 L Seg Neutrophils % 57.0 Sodium 140.3 139.7 Potassium 3.7 3.7 Chloride 99 101 Carbon Dioxide 28 28 Anion Gap 13 11 BUN 9 12 Creatinine 1.02 0.99 Est GFR ( Amer) > 60 > 60 Glucose 92 112 H Calcium 10.0 8.9 Total Bilirubin 8.7 H 7.5 H AST 123 H 92 H Alkaline Phosphatase 142 H 105 Total Protein 8.3 H 6.6 Albumin 4.9 4.0 Lipase 77.9 171.3 Impressions: Abdomen Ultrasound 06/07/19 13:05 IMPRESSION: Cholelithiasis. Heterogeneous appearance of the liver which is worrisome for an infiltrative process. Abdomen/Pelvis CT 06/07/19 18:06 IMPRESSION: 1. GALLSTONES. LARGE CALCIFICATION IN THE DISTAL COMMON BILE DUCT, MEASURING OVER 2 CM IN LENGTH, RESULTING IN BILIARY OBSTRUCTION. THIS MAY REPRESENT A SINGLE LARGE STONE OR NUMEROUS STONES CLOSELY PACKED TOGETHER. 2. NO OTHER SIGNIFICANT OR ACUTE FINDING IN THE ABDOMEN OR PELVIS ON CT SCAN WITH IV CONTRAST. Assessment & Plan - Diagnosis (1) Choledocholithiasis with obstruction Qualifiers: Cholecystitis presence: without cholecystitis Qualified Code(s): K80.51 - Calculus of bile duct without cholangitis or cholecystitis with obstruction Is this a current diagnosis for this admission?: Yes - Plan Summary Plan Summary: This is a 29-year-old male with choledocholithiasis, jaundice, and right upper quadrant pain. The patient is currently receiving antibiotic cholangitis prophylaxis. Plan for ERCP today. Plan for laparoscopic cholecystectomy tomorrow. Risks/benefits discussed, informed consent obtained, and all questions answered.
[2019-06-08] MEDS ORDERED: HYDROMORPHONE HCL INJ/PF 2 MG/ML AMPULE ONE ×2 (16:46→18:40)
[2019-06-08] MEDS ORDERED: MIDAZOLAM 2 MG/2 ML INJ ONE (16:46)
[2019-06-08] MEDS ORDERED: BUPIVACAINE HCL 0.25 % INJ/PF (2.5 MG/1 ML) 30 ML VIAL ONE (16:46)
[2019-06-08] MEDS ORDERED: BUPIVACAINE HCL 0.5 % INJ/PF 30 ML SDV ONE (16:46)
[2019-06-08] MEDS ORDERED: PROPOFOL INJ 200 MG/20 ML VIAL IV ONE (16:46)
[2019-06-08] MEDS ORDERED: FENTANYL CITRATE INJ/PF 100 MCG/2 ML AMPUL IV PRN ×3 (17:59)
[2019-06-08] MEDS ORDERED: MEPERIDINE HCL/PF INJ 25 MG/1 ML DISP.SYRIN IV PRN (17:59)
[2019-06-08] MEDS ORDERED: OXYCODONE-ACETAMINOPHEN 5-325 MG TABLET PO PRN ×2 (17:59)
[2019-06-08] MEDS ORDERED: PROMETHAZINE HCL INJ 25 MG/1 ML VIAL IV PRN ×2 (17:59)
[2019-06-08] MEDS ORDERED: ONDANSETRON HCL INJ/PF 4 MG/2 ML SDV IV PRN (17:59)
[2019-06-08] MEDS ORDERED: DIPHENHYDRAMINE HCL 50 MG/ML VIAL IV PRN (17:59)
--- NOTE | 2019-06-08 18:09 | PDOC CONSULTATION ---
Consultation Consult Date: 06/07/19 Provider Consulted: RICK VIVAS History of Present Illness Admission Date/PCP: 06/07/19 19:37 History of Present Illness: PIETER DONALD is a 29 year old malePatient who was admitted on 06/07/2019 for recurrent abdominal pain. He had an episode about 2 weeks ago that lasted continued continuously for 4 days. The second episode started 4 days ago and this time it was more severe and associated with nausea and vomiting. His urine has been dark for the last few days. On admission his ultrasound showed gallstones with no dilated ducts. A CAT scan of the abdomen showed dilated com mon bile ducts and intrahepatic ducts with a likely 2 cm stone. His bilirubin was 8.7 with a normal lipase. He has no previous history of liver disease. Past Medical History GI Medical History: Reports: Gastroesophageal Reflux Disease Psychiatric Medical History: Denies: Depression Social History Lives with: Family Smoking Status: Never Smoker Frequency of Alcohol Use: None Hx Recreational Drug Use: Yes Drugs: None Hx Prescription Drug Abuse: No - Advance Directive Resuscitation Status: Full Code Family History Family History: Reviewed & Not Pertinent Parental Family History Reviewed: No Children Family History Reviewed: NA Sibling(s) Family History Reviewed.: NA Medication/Allergy Home Medications: Ranitidine HCl [Zantac 75] 75 mg PO DAILY 06/07/19 Allergies/Adverse Reactions: No Known Allergies Allergy (Verified 06/07/19 13:01) Review of Systems All systems: reviewed and no additional remarkable complaints except as stated Physical Exam Vital Signs: Temp Pulse Resp BP Pulse Ox 99.4 F 74 17 144/77 H 100 06/08/19 16:00 06/08/19 16:00 06/08/19 16:00 06/08/19 16:00 06/08/19 16:00 Intake & Output 06/07/19 06/08/19 06/09/19 06:59 06:59 06:59 Intake Total 1100 2021 Output Total 0 Balance 1100 2021 Weight 83.9 kg Exam: General: Patient is alert and looks well. HEENT: There is no pallor but he is jaundiced. PERRLA. Oropharynx normal Respiratory: No chest deformity. No respiratory distress. Chest wall pal pitation was unremarkable. Breath sounds were normal Cardiovascular: Heart sounds 1 and 2 normal with no murmurs. Abdominal: Not distended. Soft and nontender. Liver and spleen not palpable. No ascites demonstrated. Bowel sounds active. Rectal examination was deferred. Extremities: No edema Neurological: Alert and oriented x4. Grossly nonfocal. Normal speech Skin: No significant rash Psychological: Normal affect Results Laboratory Results: 06/08/19 06:25 06/08/19 06:25 06/08/19 06/08/19 06:25 06:25 WBC 4.6 RBC 4.71 Hgb 14.1 Hct 40.9 MCV 87 MCH 30.0 MCHC 34.5 RDW 13.8 Plt Count 111 L Seg Neutrophils % 57.0 Sodium 139.7 Potassium 3.7 Chloride 101 Carbon Dioxide 28 Anion Gap 11 BUN 12 Creatinine 0.99 Est GFR ( Amer) > 60 Glucose 112 H Calcium 8.9 Total Bilirubin 7.5 H AST 92 H Alkaline Phosphatase 105 Total Protein 6.6 Albumin 4.0 Lipase 171.3 Impressions: Abdomen Ultrasound 06/07/19 13:05 IMPRESSION: Cholelithiasis. Heterogeneous appearance of the liver which is worrisome for an infiltrative process. Abdomen/Pelvis CT 06/07/19 18:06 IMPRESSION: 1. GALLSTONES. LARGE CALCIFICATION IN THE DISTAL COMMON BILE DUCT, MEASURING OVER 2 CM IN LENGTH, RESULTING IN BILIARY OBSTRUCTION. THIS MAY REPRESENT A SINGLE LARGE STONE OR NUMEROUS STONES CLOSELY PACKED TOGETHER. 2. NO OTHER SIGNIFICANT OR ACUTE FINDING IN THE ABDOMEN OR PELVIS ON CT SCAN WITH IV CONTRAST. Assessment & Plan - Diagnosis (1) Choledocholithiasis with obstruction Qualifiers: Cholecystitis presence: without cholecystitis Qualified Code(s): K80.51 - C alculus of bile duct without cholangitis or cholecystitis with obstruction Is this a current diagnosis for this admission?: Yes Plan: He has symptoms, radiologic and laboratory abnormalities consistent with choledocholithiasis. The need for an ERCP was explained to the patient including the risks and benefits and he is in agreement. He will be undergoing a cholecystectomy shortly after the ERCP. (2) Abdominal pain Qualifiers: Abdominal location: right upper quadrant Qualified Code(s): R10.11 - Right upper quadrant pain Is this a current diagnosis for this admission?: Yes (3) Biliary obstruction Is this a current diagnosis for this admission?: Yes (4) Jaundice Is this a current diagnosis for this admission?: Yes
--- NOTE | 2019-06-08 18:12 | Operative Report ---
Operative Report DATE OF SURGERY: 06/08/19 Operative Report: Pre-op diagnosis: Abdominal pain, jaundice, and abnormal CT Post-op diagnosis: 1. Large amount of common bile duct sludge 2. Dilated common bile duct and intrahepatic ducts Surgery: ERCP with sphincterotomy and balloon sludge extraction Medications: As per anesthesia Tissue removed: Procedure: After informed consent obtained from patient, the throat was sprayed with Hurricane and conscious sedation was achieved. The ERCP endoscope was then inserted into the esophagus blindly and advanced into the stomach. The duodenum was entered and the ampulla was identified. Using the triple-lumen sphincterotomy catheter the common bile duct was freely cannulated. A cholangiogram was obtained which showed a large filling defect in the common bile duct.. The common bile duct and intrahepatic ducts were dilated. A good sized sphincterotomy was then performed using the endocut mode. The catheter was removed over the guidewire before a 9-12 mm balloon catheter was inserted. The balloon was inflated to 12 mm in the proximal common bile duct and pulled down the duct. The duct was swept 3 more times. A balloon occlusion cholangiogram was normal. The pancreatic duct was intentionally not cannulated. Patient tolerated procedure well. Findings Common bile duct: Dilated with a 1 to 2 cm filling defect. This was a thick sludge ball that was extracted using the balloon. Intrahepatic ducts: Dilated Pancreatic duct: Not cannulated Plan: Proceed with cholecystectomy and follow LFTs OPERATION: .
--- NOTE | 2019-06-08 18:32 | RADIOLOGY REPORT (SQ) ---
EXAM DESCRIPTION: ENDO CATH/BILIARY DUCT; NO CHG FLUORO COMPLETED DATE/TIME: 06/08/2019 6:21 pm REASON FOR STUDY: ERCP COMPARISON: None. FLUOROSCOPY TIME: 3.9 minutes. 6 images saved to PACS. TECHNIQUE: Intra-operative images acquired during surgical procedure to evaluate progress. NUMBER OF IMAGES: 6 images. LIMITATIONS: None. FINDINGS: Images of the upper abdomen acquired during ERCP. IMPRESSION: IMAGE(S) OBTAINED DURING PROCEDURE. COMMENT: Quality ID [id number]: Final reports for procedures using fluoroscopy that document radiation exp osure indices, or exposure time and number of fluorographic images (if radiation exposure indices are not available) Please consult full operative report of the attending physician for description of the procedure. TECHNICAL DOCUMENTATION: JOB ID: [id number] [employer]- All Rights Reserved Reading location - IP/workstation name: [email or web address]
--- NOTE | 2019-06-08 18:32 | RADIOLOGY REPORT (SQ) ---
EXAM DESCRIPTION: ENDO CATH/BILIARY DUCT; NO CHG FLUORO COMPLETED DATE/TIME: 06/08/2019 6:21 pm REASON FOR STUDY: ERCP COMPARISON: None. FLUOROSCOPY TIME: 3.9 minutes. 6 images saved to PACS. TECHNIQUE: Intra-operative images acquired during surgical procedure to evaluate progress. NUMBER OF IMAGES: 6 images. LIMITATIONS: None. FINDINGS: Images of the upper abdomen acquired during ERCP. IMPRESSION: IMAGE(S) OBTAINED DURING PROCEDURE. COMMENT: Quality ID 145: Final reports for procedures using fluoroscopy that document radiation exp osure indices, or exposure time and number of fluorographic images (if radiation exposure indices are not available) Please consult full operative report of the attending physician for description of the procedure. TECHNICAL DOCUMENTATION: JOB ID: [id number] [employer]- All Rights Reserved Reading location - IP/workstation name: [email or web address]
--- NOTE | 2019-06-08 19:31 | Operative Report ---
Nonrecallable Operative Report DATE OF SURGERY: 06/08/19 PREOPERATIVE DIAGNOSIS: Choledocholithiasis POSTOPERATIVE DIAGNOSIS: Same as above OPERATION: Laparoscopic cholecystectomy SURGEON: RHYS ARCHIBALD ANESTHESIA: GA TISSUE REMOVED OR ALTERED: Gallbladder COMPLICATIONS: None apparent ESTIMATED BLOOD LOSS: Minimal PROCEDURE: Drains/implants: None. Procedure in detail: After informed consent was obtained, the patient was brought to the operating room and laid in the supine position. The area of the abdomen was prepped and draped in a normal sterile fashion. A supraumbilical incision was created using a 15 blade scalpel. Dissection was carried through the subcutaneous tissues using sharp and blunt dissection. The linea alba fascia was incised sharply, the abdomen was entered sharply. The balloon trocar was inserted, and pneumoperitoneum was achieved. A subxiphoid 5 mm port was then placed under direct laparoscopic visualization. 2 more 5 mm ports were placed in the right upper quadrant in similar fashion. Atraumatic graspers were placed through the 5 mm ports. The gallbladder was retracted cephalad and laterally. Dissection was begun in the triangle of Calot. The cystic duct and cystic artery were fully visualized and skeletonized, seeing the liver through the triangle. Once the critical view of safety was obtained, the cystic artery was clipped and cut with laparoscopic instruments. The cystic duct was found to be very dilated, and would not accept an Endo Clip. Secondary to this, the gallbladder was freed from the liver using sharp dissection, blunt dissection, and electrocautery. Next a PDS Endoloop was secured around the infundibulum/cystic duct junction. The gallbladder was then amputated and placed into an Endo Catch bag. The gallbladder was then pulled out through the umbilicus. The camera was reinserted. The hilum was inspected. It was found to be free of any leakage of blood or bile. Once this was confirmed, the 5 mm trochars were removed under direct laparoscopic visualization. The supraumbilical trocar was removed, and pneumoperitoneum was relieved. The supraumbilical fascia was closed using 0 Vicryl suture in [id number] fashion. The overlying skin was closed using 4-0 Vicryl Rapide suture in subcuticular fashion. Dressing was placed, and the procedure was concluded. All sponge, instrument, and needle counts were correct x2. Condition: Stable.
[2019-06-08] MEDS: FAMOTIDINE 20 MG TABLET PO SCH (21:32)
[2019-06-08] MEDS: KETOROLAC TROMETHAMINE INJ/PF 30 MG/1 ML SDV IV SCH (21:32)
[2019-06-09] MEDS: HYDROCODONE/ACETAMINOPHEN 10-325 MG TABLET PO PRN ×2 (01:21→12:50)
[2019-06-09] MEDS: PIPERACILLIN SODIUM/TAZOBACTAM 3.375 GM in NORMAL SALINE 100 ML IV SCH ×4 (04:25→22:21)
[2019-06-09] MEDS: KETOROLAC TROMETHAMINE INJ/PF 30 MG/1 ML SDV IV SCH ×3 (06:01→22:22)
[2019-06-09 07:23] LABS: ALBUMIN 3.9 g/dL (3.5-5.0); ALKALINE PHOSPHATASE 96 U/L (38-126); ANION GAP 10 (5-19); ASPARTATE AMINO TRANSFERASE 107 U/L (17-59); BILIRUBIN,DIRECT 2.9 mg/dL (0.0-0.4); BILIRUBIN,TOTAL 5.1 mg/dL (0.2-1.3); BLOOD UREA NITROGEN 6 mg/dL (7-20); CALCIUM 8.9 mg/dL (8.4-10.2); CARBON DIOXIDE 30 mmol/L (22-30); CHLORIDE 100 mmol/L (98-107); GLUCOSE 106 mg/dL (75-110); POTASSIUM 4.1 mmol/L (3.6-5.0); TOTAL PROTEIN 6.5 g/dL (6.3-8.2)
[2019-06-09] MEDS: FAMOTIDINE 20 MG TABLET PO SCH ×2 (11:08→22:21)
--- NOTE | 2019-06-09 17:07 | PDOC PROGRESS REPORT ---
Subjective Progress Note for:: 06/09/19 Subjective:: Doing well post ERCP and laparoscopic cholecystectomy. Denies any significant abdominal pain but. Her urine appears to be less highly colored Reason For Visit: CHOLELITHIASIS,COMMON BILE DUCT STONES Physical Exam Vital Signs: Temp Pulse Resp BP Pulse Ox 97.3 F 63 16 138/63 H 98 06/09/19 00:35 06/09/19 00:35 06/09/19 00:35 06/09/19 00:35 06/09/19 00:35 Intake & Output 06/08/19 06/09/19 06/10/19 06:59 06:59 06:59 Intake Total 1100 4272 1070 Output Total 0 10 Balance 1100 4262 1070 Weight 83.9 kg 87.5 kg Exam: Abdomen is soft and minimal tenderness. All the incisions are clean and dry. Results Laboratory Results: 06/08/19 06:25 06/09/19 06:14 06/09/19 06:14 Sodium 139.6 Potassium 4.1 Chloride 100 Carbon Dioxide 30 Anion Gap 10 BUN 6 L Creatinine 0.90 Est GFR ( Amer) > 60 Glucose 106 Calcium 8.9 Total Bilirubin 5.1 H AST 107 H Alkaline Phosphatase 96 Total Protein 6.5 Albumin 3.9 Lipase 142.0 Impressions: Abdomen Ultrasound 06/07/19 13:05 IMPRESSION: Cholelithiasis. Heterogeneous appearance of the liver which is worrisome for an infiltrative process. Abdomen/Pelvis CT 06/07/19 18:06 IMPRESSION: 1. GALLSTONES. LARGE CALCIFICATION IN THE DISTAL COMMON BILE DUCT, MEASURING OVER 2 CM IN LENGTH, RESULTING IN BILIARY OBSTRUCTION. THIS MAY REPRESENT A SINGLE LARGE STONE OR NUMEROUS STONES CLOSELY PACKED TOGETHER. 2. NO OTHER SIGNIFICANT OR ACUTE FINDING IN THE ABDOMEN OR PELVIS ON CT SCAN WITH IV CONTRAST. Catheter Placement 06/08/19 00:00 IMPRESSION: IMAGE(S) OBTAINED DURING PROCEDURE. Fluoroscopy 06/08/19 00:00 IMPRESSION: IMAGE(S) OBTAINED DURING PROCEDURE. Assessment & Plan - Diagnosis (1) Cholelithiasis Is this a current diagnosis for this admission?: Yes (2) Abdominal pain Qualifiers: Abdominal location: right upper quadrant Qualified Code(s): R10.11 - Right upper quadrant pain Is this a current diagnosis for this admission?: Yes (3) Biliary obstruction Is this a current diagnosis for this admission?: Yes (4) Jaundice Is this a current diagnosis for this admission?: Yes - Time Time Spent with patient: 15-24 minutes - Inpatient Certification Medical Necessity: Need Close Monitoring Due to Risk of Patient Decompensation - Is post ERCP and lap cholecystectomy yesterday is liver enzymes and bilirubin bilirubin are trending down. We will repeat the blood work in a.m. and possibly discharge if they continue to go down, Need For IV Fluids
[2019-06-10] MEDS: PIPERACILLIN SODIUM/TAZOBACTAM 3.375 GM in NORMAL SALINE 100 ML IV SCH ×2 (03:42→09:18)
[2019-06-10] MEDS: KETOROLAC TROMETHAMINE INJ/PF 30 MG/1 ML SDV IV SCH (05:09)
[2019-06-10] MEDS: FAMOTIDINE 20 MG TABLET PO SCH (09:18)
[2019-06-10 11:01] VITALS: BP 144/77
--- NOTE | 2019-06-10 11:24 | PDOC DISCHARGE SUMMARY ---
General - Admit/Disc Date/PCP Admission Date/Primary Care Provider: 06/07/19 19:37 Discharge Date: 06/10/19 - Discharge Diagnosis Final Diagnosis: Cholelithiasis Choledocholithiasis - Assessment Summary: 29-year-old male with abdominal pains for about a week with nausea and vomiting and abdominal pains. Admitted through the ED on 06/07/2019 for gallstones and common bile duct stones noted on a CAT scan and ultrasound. He was then admitted on IV antibiotics in the form of Zosyn and had an ERCP by Dr. Reid followed by laparoscopic cholecystectomy by on 06/08/2019. P ostoperatively he did well and all his enzymes are trending down. He was then discharged to improve on 06/10/2019. He was given a prescription for Toradol 10 mg p.o. every 6 hours as needed for pain and to be followed up in the surgical clinic in [address] Vásquez. - Additional Information Resuscitation Status: Full Code Discharge Diet: Regular Discharge Activity: No Lifting Over 10 Pounds, Slowly Increase Activity Referrals: RHYS VÁSQUEZ MD [ACTIVE STAFF] - 06/20/19 9:15 am (S/P LAP RAMBO) Home Medications: Ranitidine HCl [Zantac 75] 75 mg PO DAILY 06/07/19 History of Present Illiness History of Present Illness: PIETER DONALD is a 29 year old malewho started c/o RUQ pains 5 days ago. This was associated with nausea and vomiting. He also noticed that his urine was highly colored. The pains were persistent and went to ED today. He had an ultrasound of the gallbladder which showed gallstones with a normal common bile duct but with question of inflammatory lesion in the liver. His LFTs are elevated as well as bilirubin being 8. A CT scan of the abdomen was then ordered and showed dilated intrahepatic bile ducts with the common bile duct stone about 2 cm in diameter. He was able to get in touch with Dr. Reid the GI physician. He said the patient can be admitted to the surgical service and started on IV antibiotics and he will do an ERCP tomorrow. The patient will eventually need cholecystectomy after the ERCP. Denies any chills nor fever diarrhea or constipation. Physical Exam Vital Signs: Temp Pulse Resp BP Pulse Ox 98.3 F 70 16 144/77 H 98 09/27/19 10:57 06/10/19 10:57 06/10/19 10:57 06/10/19 10:57 06/10/19 10:57 Intake & Output 06/09/19 06/10/19 06/11/19 06:59 06:59 06:59 Intake Total 4272 1630 100 Output Total 10 Balance 4262 1630 100 Weight 87.5 kg 88.7 kg Results Laboratory Results: WBC 4.6 10^3/uL (4.0-10.5) 06/08/19 06:25 RBC 4.71 10^6/uL (4.35-5.55) 06/08/19 06:25 Hgb 14.1 g/dL (13.5-17.0) 06/08/19 06:25 Hct 40.9 % (37.9-51.0) 06/08/19 06:25 MCV 87 fl (80-97) 06/08/19 06:25 MCH 30.0 pg (27.0-33.4) 06/08/19 06:25 MCHC 34.5 g/dL (32.0-36.0) 06/08/19 06:25 RDW 13.8 % (11.5-14.0) 06/08/19 06:25 Plt Count 111 10^3/uL (150-450) L 06/08/19 06:25 Lymph % (Auto) 26.7 % (13-45) 06/08/19 06:25 [place] % (Auto) 11.1 % (3-13) 06/08/19 06:25 Eos % (Auto) 4.5 % (0-6) 06/08/19 06:25 Baso % (Auto) 0.7 % (0-2) 06/08/19 06:25 Absolute Neuts (auto) 2.6 10^3/uL (1.7-8.2) 06/08/19 06:25 Absolute Lymphs (auto) 1.2 10^3/uL (0.5-4.7) 06/08/19 06:25 Absolute Monos (auto) 0.5 10^3/uL (0.1-1.4) 06/08/19 06:25 Absolute Eos (auto) 0.2 10^3/uL (0.0-0.6) 06/08/19 06:25 Absolute Basos (auto) 0.0 10^3/uL (0.0-0.2) 06/08/19 06:25 Seg Neutrophils % 57.0 % (42-78) 06/08/19 06:25 Sodium 139.6 mmol/L (137-145) 06/09/19 06:14 Potassium 4.1 mmol/L (3.6-5.0) 06/09/19 06:14 Chloride 100 mmol/L (98-107) 06/09/19 06:14 Carbon Dioxide 30 mmol/L (22-30) 06/09/19 06:14 Anion Gap 10 (5-19) 06/09/19 06:14 BUN 6 mg/dL (7-20) L 06/09/19 06:14 Creatinine 0.90 mg/dL (0.52-1.25) 06/09/19 06:14 Est GFR ( Amer) > 60 (>60) 06/09/19 06:14 Est GFR (MDRD) Non-Af > 60 (>60) 06/09/19 06:14 Glucose 106 mg/dL (75-110) 06/09/19 06:14 Calcium 8.9 mg/dL (8.4-10.2) 06/09/19 06:14 Total Bilirubin 5.1 mg/dL (0.2-1.3) H 06/09/19 06:14 Direct Bilirubin 2.9 mg/dL (0.0-0.4) H 06/09/19 06:14 Neonat Total Bilirubin Not Reportable 06/09/19 06:14 Neonat Direct Bilirubin Not Reportable 06/09/19 06:14 Neonat Indirect Bili Not Reportable 06/09/19 06:14 AST 107 U/L (17-59) H 06/09/19 06:14 ALT 206 U/L (<50) 06/09/19 06:14 Alkaline Phosphatase 96 U/L (38-126) 06/09/19 06:14 Total Protein 6.5 g/dL (6.3-8.2) 06/09/19 06:14 Albumin 3.9 g/dL (3.5-5.0) 06/09/19 06:14 Lipase 142.0 U/L (23-300) 06/09/19 06:14 Urine Color SAMUEL 06/07/19 13:19 Urine Appearance CLEAR 06/07/19 13:19 Urine pH 6.0 (5.0-9.0) 06/07/19 13:19 Ur Specific [place] 1.016 06/07/19 13:19 Urine Protein NEGATIVE mg/dL (NEGATIVE) 06/07/19 13:19 Urine Glucose (UA) NEGATIVE mg/dL (NEGATIVE) 06/07/19 13:19 Urine Ketones 20 mg/dL (NEGATIVE) H 06/07/19 13:19 Urine Blood NEGATIVE (NEGATIVE) 06/07/19 13:19 Urine Nitrite NEGATIVE (NEGATIVE) 06/07/19 13:19 Urine Bilirubin MODERATE (NEGATIVE) H 06/07/19 13:19 Urine Urobilinogen 4.0 mg/dL (<2.0) H 06/07/19 13:19 Ur Leukocyte Esterase NEGATIVE (NEGATIVE) 06/07/19 13:19 Urine WBC (Auto) 5 /HPF 06/07/19 13:19 Urine RBC (Auto) 4 /HPF 06/07/19 13:19 Urine Mucus (Auto) FEW /LPF 06/07/19 13:19 Urine Ascorbic Acid NEGATIVE (NEGATIVE) 06/07/19 13:19 Impressions: Abdomen Ultrasound 06/07/19 13:05 IMPRESSION: Cholelithiasis. Heterogeneous appearance of the liver which is worrisome for an infiltrative process. Abdomen/Pelvis CT 06/07/19 18:06 IMPRESSION: 1. GALLSTONES. LARGE CALCIFICATION IN THE DISTAL COMMON BILE DUCT, MEASURING OVER 2 CM IN LENGTH, RESULTING IN BILIARY OBSTRUCTION. THIS MAY REPRESENT A SINGLE LARGE STONE OR NUMEROUS STONES CLOSELY PACKED TOGETHER. 2. NO OTHER SIGNIFICANT OR ACUTE FINDING IN THE ABDOMEN OR PELVIS ON CT SCAN WITH IV CONTRAST. Catheter Placement 06/08/19 00:00 IMPRESSION: IMAGE(S) OBTAINED DURING PROCEDURE. Fluoroscopy 06/08/19 00:00
== END 2019-06-10 11:35 | disposition home or self-care (01) | DRG 419 ==
LOC: ER 12:34 → EH 19:37 → 5 21:43
PROVIDERS: ADMIT Surgery; ATTEND Surgery
PROC: 0FT44ZZ Resection of Gallbladder, Percutaneous Endoscopic Approach (ICD-10-PCS; principal; 2019-06-08 17:15)
PROC: 0FC98ZZ Extirpation of Matter from Common Bile Duct, Via Natural or Artificial Opening Endoscopic (ICD-10-PCS; 2019-06-08 17:15)
PROC: BF101ZZ Fluoroscopy of Bile Ducts using Low Osmolar Contrast (ICD-10-PCS; 2019-06-08 17:15)
DX: K80.71 Calculus of gallbladder and bile duct without cholecystitis with obstruction (principal); K21.9 Gastro-esophageal reflux disease without esophagitis; Z82.49 Family history of ischemic heart disease and other diseases of the circulatory system
CPT/HCPCS: 36415; 43262; 43264; 74177; 74328; 76700; 790; 80053; 81001; 83690; 85025; 88304; 96360; 99285; J1100; J1170; J1885; J2250; J2405; J2543; J2704; J2710; J2765; J3490; J7030; J7050; J7121

== ENCOUNTER 2019-06-11 20:16 | Emergency (ER) | payer OTHER ==
[2019-06-11] MEDS ORDERED: NORMAL SALINE 1000 ML 1,000 ML IV ONE (21:58)
[2019-06-11] MEDS ORDERED: ONDANSETRON HCL INJ/PF 4 MG/2 ML SDV IM ONE (21:58)
[2019-06-11] MEDS ORDERED: ONDANSETRON HCL INJ/PF 4 MG/2 ML SDV ONE (22:00)
[2019-06-11 22:22] LABS: ABSOLUTE LYMPHOCYTES (AUTO) 1.4 10^3/uL (0.5-4.7); ABSOLUTE MONOCYTES (AUTO) 0.6 10^3/uL (0.1-1.4); ABSOLUTE NEUT (AUTO) 9.2 10^3/uL (1.7-8.2); BASOPHILS % (AUTO) 0.2 % (0-2); EOSINOPHILS % (AUTO) 0.1 % (0-6); HEMATOCRIT 33.1 % (37.9-51.0); HEMOGLOBIN 11.3 g/dL (13.5-17.0); LYMPHOCYTES % (AUTO) 12.4 % (13-45); MEAN CORPUSCULAR HEMOGLOBIN 29.8 pg (27.0-33.4); MEAN CORPUSCULAR VOLUME 88 fl (80-97); MONOCYTES % (AUTO) 5.3 % (3-13); PLATELET COUNT 228 10^3/uL (150-450); RED BLOOD COUNT 3.78 10^6/uL (4.35-5.55); RED CELL DISTRIBUTION WIDTH 13.2 % (11.5-14.0); TOTAL CELLS COUNTED % (AUTO) 100 %; WHITE BLOOD COUNT 11.2 10^3/uL (4.0-10.5)
[2019-06-11 22:39] LABS: APPEARANCE,URINE CLEAR; BILIRUBIN,URINE NEGATIVE (NEGATIVE); COLOR,URINE AMBER; GLUCOSE, URINE NEGATIVE (NEGATIVE); KETONES,URINE 20 mg/dL (NEGATIVE); LEUKOCYTE ESTERASE,URINE NEGATIVE (NEGATIVE); NITRITE,URINE NEGATIVE (NEGATIVE); PROTEIN,URINE NEGATIVE (NEGATIVE); URINE SPECIFIC GRAVITY 1.027
[2019-06-11 22:43] LABS: ALKALINE PHOSPHATASE 82 U/L (38-126); ANION GAP 11 (5-19); ASPARTATE AMINO TRANSFERASE 151 U/L (17-59); BILIRUBIN,DIRECT 1.1 mg/dL (0.0-0.4); BILIRUBIN,TOTAL 2.7 mg/dL (0.2-1.3); BLOOD UREA NITROGEN 38 mg/dL (7-20); CALCIUM 9.1 mg/dL (8.4-10.2); CARBON DIOXIDE 24 mmol/L (22-30); CHLORIDE 104 mmol/L (98-107); GLUCOSE 127 mg/dL (75-110); POTASSIUM 4.1 mmol/L (3.6-5.0); TOTAL PROTEIN 6.5 g/dL (6.3-8.2)
[2019-06-12] MEDS ORDERED: MECLIZINE HCL 25 MG TABLET PO ONE (00:28)
[2019-06-12] MEDS ORDERED: ONDANSETRON HCL INJ/PF 4 MG/2 ML SDV IV ONE (00:46)
--- NOTE | 2019-06-12 00:52 | ER Document Report ---
ED General - General Chief Complaint: Vomiting Stated Complaint: VOMITING,DIZZINESS Time Seen by Provider: 06/12/19 00:24 TRAVEL OUTSIDE OF THE [place] IN LAST 30 DAYS: No - HPI Notes: This is a 29-year-old gentleman who presents today with a complaint of sudden onset of vertigo this morning, associated with nausea and vomiting. Patient describes a spinning sensation worse with moving his head. He denies any headache. He denies any visual changes. He denies any focal neurologic complaints. Denies any tinnitus. Describes his symptoms as moderate. - Related Data Allergies/Adverse Reactions: No Known Allergies Allergy (Verified 06/07/19 13:01) Past Medical History - Social History Smoking Status: Unknown if Ever Smoked Family History: Reviewed & Not Pertinent Patient has suicidal ideation: No Patient has homicidal ideation: No Renal/ Medical History: Denies: Hx Peritoneal Dialysis GI Medical History: Reports: Hx Gastroesophageal Reflux Disease Psychiatric Medical History: Denies: Hx Depression Past Surgical History: Reports: Hx Oral Surgery Review of Systems - Review of Systems Gastrointestinal: Nausea, Vomiting. denies: Abdominal pain, Diarrhea Neurological/Psychological: Other - Dizziness. denies: Weakness, Speech impairment, Numbness -: Yes All other systems reviewed and negative Physical Exam - Vital signs Vitals: Temp Pulse Resp BP Pulse Ox 98.8 F 133 H 16 109/78 100 06/11/19 20:26 06/11/19 20:26 06/11/19 20:26 06/11/19 20:26 06/11/19 20:26 - General General appearance: Appears well, Alert - HEENT Head: Normocephalic, Atraumatic Eyes: Normal Pupils: PERRL Tympanic membrane: Normal - Respiratory Respiratory status: No respiratory distress Chest status: Nontender Breath sounds: Normal Chest palpation: Normal - Cardiovascular Rhythm: Regular Heart sounds: Normal auscultation Murmur: No - Abdominal Inspection: Normal - Recent surgery. Surgical scars look good. Distension: No distension Bowel sounds: Normal Tenderness: Nontender Organomegaly: No organomegaly - Neurological Neuro grossly intact: Yes Cognition: Normal - There is no motor, sensory or cerebellar deficits. Nonfocal neurologic exam. There is reproducible vertigo and fatigable horizontal nystagmus. Orientation: AAOx4 [place] Coma Scale Eye Opening: Spontaneous [place] Coma Scale Verbal: Oriented [place] Coma Scale Motor: Obeys Commands Riparius Coma Scale Total: 15 Speech: Normal Motor strength normal: LUE, RUE, LLE, RLE Sensory: Normal Course - Re-evaluation Re-evalutation: 06/12/19 00:52 Clinical picture suggestive of benign positional vertigo. Will check basic lab s. Will hydrate patient. There is no clinical suspicion for CVA. 06/12/19 01:59 Patient reevaluated. Patient is vomiting. Will not tolerate meclizine at this time. Will give Phenergan. Also given Ativan for his dizziness. 06/12/19 04:04 Patient reevaluated. Patient feels much better. Nausea resolved. Labs reviewed. LFTs are slightly elevated. Patient is status post cholecystectomy. He has no abdominal pain. He is stable for discharge. Labs discussed. Follow- up instructions given. - Vital Signs Vital signs: Temp Pulse Resp BP Pulse Ox 98.8 F 133 H 16 109/78 100 06/11/19 20:26 06/11/19 20:26 06/11/19 20:26 06/11/19 20:26 06/11/19 20:26 - Laboratory Result Diagrams: 06/11/19 22:08 06/11/19 22:08 Laboratory results interpreted by me: 06/11/19 06/11/19 06/11/19 22:08 22:08 22:17 WBC 11.2 H RBC 3.78 L Hgb 11.3 L Hct 33.1 L Lymph % (Auto) 12.4 L Absolute Neuts (auto) 9.2 H Seg Neutrophils % 82.0 H BUN 38 H Glucose 127 H Total Bilirubin 2.7 H Direct Bilirubin 1.1 H AST 151 H Urine Ketones 20 H Urine Urobilinogen 2.0 H Discharge - Discharge Clinical Impression: Benign positional vertigo Qualifiers: Laterality: unspecified laterality Qualified Code(s): H81.10 - Benign paroxysmal vertigo, unspecified ear Vomiting Qualifiers: Vomiting type: unspecified Vomiting Intractability: non-intractable Nausea presence: with nausea Qualified Code(s): R11.2 - Nausea with vomiting, unspecified Condition: Good Disposition: HOME, SELF-CARE Instructions: Vomiting ([facility]), Vertigo ([facility]) Additional Instructions: Return if worse or concerns. Prescriptions: Meclizine HCl [Antivert 25 mg Tablet] 25 mg PO TID PRN #21 tablet PRN Reason: Ondansetron [Zofran Odt 4 mg Tablet] 1 - 2 tab PO Q4H PRN #15 tab.rapdis PRN Reason: For Nausea/Vomiting Referrals: [facility] [NO LOCAL MD] - Follow up as needed
[2019-06-12] MEDS ORDERED: LORAZEPAM INJ 2 MG/1 ML VIAL IV ONE (01:58)
[2019-06-12] MEDS ORDERED: PROMETHAZINE HCL INJ 25 MG/1 ML VIAL IV ONE (01:58)
[2019-06-12] MEDS ORDERED: NORMAL SALINE 500 ML IV ONE (02:30)
[2019-06-12 04:29] VITALS: BP 119/67
== END 2019-06-12 04:29 | disposition home or self-care (01) ==
LOC: ER 20:16
DX: H81.10 Benign paroxysmal vertigo, unspecified ear (principal); R11.2 Nausea with vomiting, unspecified; R79.89 Other specified abnormal findings of blood chemistry; Z90.49 Acquired absence of other specified parts of digestive tract; Z87.19 Personal history of other diseases of the digestive system
CPT/HCPCS: 96376; 99284; 96361; 96374; 96375; 36415; 85025; 80053; 81001; J2060; J2550; J2405 ×2; J7030; J7040